=== PATIENT | male | born 1965 | race Two or more races ===

== ENCOUNTER 2019-07-25 12:31 | Inpatient (IN) | payer OTHER ==
[~2019-07-25] VITALS: Ht 167.6 cm; Wt 77.1 kg
== END 2019-08-01 17:19 | disposition home or self-care (01) | DRG 331 ==
LOC: EDSTATUS 14:15 → ADM 14:15 → O/R 07-30 05:50 → SURH 07-30 05:50 → O/R 07-30 13:15 → SURH 08-01 13:13
PROVIDERS: ADMIT Colon & Rectal Surgery
PROC: 0DJD8ZZ Inspection of Lower Intestinal Tract, Via Natural or Artificial Opening Endoscopic (ICD-10-PCS; 2019-07-30)
PROC: 0DTN4ZZ Resection of Sigmoid Colon, Percutaneous Endoscopic Approach (ICD-10-PCS; principal; 2019-07-30 13:15)
DX: K57.80 Diverticulitis of intestine, part unspecified, with perforation and abscess without bleeding (principal); K58.8 Other irritable bowel syndrome

== ENCOUNTER → 2020-09-25 08:00 | Outpatient (CLI) | payer OTHER | END | disposition home or self-care (01) | LOC: LAB 08:00 → ADM 12:30 → EDSTATUS 10-02 15:30 → AMB-ENDOS 10-02 15:30 | PROVIDERS: ATTEND Colon & Rectal Surgery | DX: U07.1 COVID-19 (principal); K57.20 Diverticulitis of large intestine with perforation and abscess without bleeding; K92.1 Melena; K58.0 Irritable bowel syndrome with diarrhea ==

== ENCOUNTER 2021-03-05 07:14 | Day surgery (SDC) | payer OTHER | END 2021-03-05 10:35 | disposition home or self-care (01) | LOC: AMB-ENDOS 07:14 | PROVIDERS: ATTEND Colon & Rectal Surgery | DX: K62.89 Other specified diseases of anus and rectum (principal); K64.0 First degree hemorrhoids; Z20.822 Contact with and (suspected) exposure to COVID-19 ==

== ENCOUNTER 2021-07-30 06:00 | Day surgery (SDC) | payer OTHER | END 2021-07-30 14:55 | disposition home or self-care (01) | LOC: CIR.AMB 06:00 | PROVIDERS: ATTEND Urology | DX: N43.2 Other hydrocele (principal); Z20.822 Contact with and (suspected) exposure to COVID-19 ==